=== PATIENT | female | born 1945 | race Two or more races ===

== ENCOUNTER 2022-12-06 10:56 | Outpatient (REF) | payer OTHER, SELFPAY ==
[2022-12-06 13:51] LABS: Estimated Average Glucose 123 mg/dL; Hemoglobin A1c % 5.9 %
[2022-12-06 14:02] LABS: Alanine Aminotransferase 18 U/L (0-31); Albumin Level 4.4 g/dL (3.5-5.0); Alkaline Phosphatase 86 U/L (39-117); Anion Gap 14 (12-20); Aspartate Amino Transferase 26 U/L (5-31); Bilirubin Total 0.4 mg/dL (0.0-1.0); Blood Urea Nitrogen 17 mg/dL (9-16); Calcium 10.1 mg/dL (8.4-10.2); Carbon Dioxide 25 mmol/L (22-29); Chloride 102 mmol/L (96-108); Cholesterol 209 mg/dL; Estimated Glomerular Filt Rate > 60; Glucose Random 99 mg/dL (60-115); HDL Cholesterol 53 mg/dL; LDL Cholesterol Calculated 124 mg/dl; Potassium 4.1 mmol/L (3.3-5.1); Sodium 137 mmol/L (135-145); Total Protein 7.4 g/dL (6.5-8.0); Triglycerides 162 mg/dL
[2022-12-06 14:19] LABS: Thyroid Stimulating Hormone 3.59 uIU/mL (0.32-4.0)
== END 2022-12-06 10:57 | disposition home or self-care (01) ==
LOC: HO.10HDL 10:56
PROVIDERS: Visit Provider Internal Medicine
DX: Z00.00 Encounter for general adult medical examination without abnormal findings (principal); N39.0 Urinary tract infection, site not specified; E03.8 Other specified hypothyroidism; E78.2 Mixed hyperlipidemia; I10 Essential (primary) hypertension
CPT/HCPCS: 36415; 80053; 80061; 83036; 84443; 87086